=== PATIENT | male | born 1960 | race Caucasian/White ===

== ENCOUNTER → 2017-07-05 | Day surgery (SDC) | payer OTHER ==
[~2017-07-05] VITALS: Ht 177.8 cm; Wt 96.6 kg
[~2017-07-05] MED LIST: BREO ELLIPTA 11 EACH INH; BREO ELLIPTA 11 EACH PO; CYMBALTA60 MG PO; DULCOLAX STOOL100 MG PO; FLOMAX0.4 MG PO; LIPITOR20 MG PO; NORVASC5 MG PO; PRILOSEC20 M1 PO; VALIUM2 MG PO; WELLBUTRIN XL300 MG PO; ZANTAC 150150 MG PO; ZYRTEC10 MG PO
--- NOTE | ~2017-07-05 | PROC NOTE ---
[place], [place] PROCEDURE NOTE NAME: TIEN MARTIN UNIT #: [id number] ROOM: DOCTOR: MELVI CHAPIN MD,MISSAEL BIRTHDATE: [birth year] DOS: 07/05/2017 PREOPERATIVE DIAGNOSES: The patient's right middle lobe atelectasis, right lower lobe atelectasis as well, which was subsegmental. 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 The BAL specimen obtained from the right lower lobe bronchi as well. COMPLICATIONS: None. PROCEDURE DESCRIPTION: Informed consent obtained. The patient brought to the OR and placed in supine position. Conscious sedation administered by the Anesthesia Department. After achieving proper sedation, the patient's airway introduced into the mouth. Bronchoscope advanced to the airway into laryngeal area. The epiglottis and vocal cords were seen. Vocal cord noted yellowish in color moving symmetrical with movements. Bronchoscope advanced to the vocal cord and tracheal lumen. Tracheal lumen was identified, does not show any significant secretions. Chantell noted sharp. Left upper, lingula, and lower lobe bronchus was noted all patent without any secretions. Right upper lung bronchus was also noted with normal opening. Superior segment of the right lower lobe with narrowing and the right middle lobe bronchus also noted narrow without any endobronchial obstructive lesion. The bronchoscope could not be advanced through either of the endobronchial superior segment of the right lower lobe and the right mainstem bronchus. BAL specimen was obtained from the right lower lobe endobronchial tree successfully without difficulty. Postoperative findings were discussed with the patient after the patient recovered partly from sedation. The patient will be seen in the office for further followup to make further assessment and to discuss the culture results and other findings. MISSAEL OGDEN MD CM:PROCNOTE:PROCEDURE NOTE [id number] MISSAEL CHAPIN MD
[2017-07-05 08:25] VITALS: BP 133/85
[2017-07-05 08:58] VITALS: BP 132/81
[2017-07-05 09:13] VITALS: BP 145/86
[2017-07-05 09:28] VITALS: BP 136/78
[2017-07-05 11:27] LABS: BF LYMPHOCYTES 4 %; BF NEUTROPHILS 2 %
[2017-07-06 15:08] LABS: ACID FAST SPEC PROCESSING Concentration (.)
== END | disposition home or self-care (01) ==
LOC: SDC 06-30 08:45
PROVIDERS: Internal Medicine Critical Care Medicine
DX: D14.31 Benign neoplasm of right bronchus and lung (principal); J98.11 Atelectasis; K21.9 Gastro-esophageal reflux disease without esophagitis; F41.9 Anxiety disorder, unspecified; E78.00 Pure hypercholesterolemia, unspecified; Z87.891 Personal history of nicotine dependence; Z79.899 Other long term (current) drug therapy; G47.30 Sleep apnea, unspecified; J44.9 Chronic obstructive pulmonary disease, unspecified